=== PATIENT | male | born 1985 | race Two or more races ===

== ENCOUNTER 2022-07-07 18:57 | Emergency (ER) | payer MEDICAID ==
[2022-07-07 19:56] LABS: ESTIMATED GFR 88 mL/min (>60)
[2022-07-07] MEDS ORDERED: Tamsulosin 0.4 MG Cap.ER PO ONE (21:37)
== END 2022-07-07 21:56 | disposition home or self-care (01) ==
LOC: FB.ED 18:57
DX: N13.2 Hydronephrosis with renal and ureteral calculous obstruction (principal)
CPT/HCPCS: 36415; 51701; 74176; 80053; 81001; 85025; 86140; 87086; 99284; A9270

== ENCOUNTER 2024-10-06 13:31 | Emergency (ER) | payer MEDICAID ==
[2024-10-06] MEDS: Sodium Chloride 0.9% 10 ML Syringe FLUSH PRN (14:20)
[2024-10-06] MEDS: Sodium Chloride 0.9% 1,000 ML IV ONE (14:28)
[2024-10-06 14:35] LABS: BASOPHILS PERCENT AUTO 0.6 % (0.3-3.8); EOSINOPHILS PERCENT AUTO 0.2 % (0.1-6.8); HEMATOCRIT 42.9 % (38.3-50.1); HEMOGLOBIN 14.4 g/dL (12.9-17.7); MEAN CORPUSCULAR HEMOGLOBIN 30.4 pg (27.0-33.3); MEAN CORPUSCULAR HGB CONC 33.6 g/dL (28.7-35.3); MEAN CORPUSCULAR VOLUME 90.5 fL (80.8-98.7); MONOCYTES ABSOLUTE AUTO 0.7 x10-3/uL (0.0-1.2); MONOCYTES PERCENT AUTO 8.9 % (5.5-15.2); NEUTROPHILS ABSOLUTE AUTO 6.1 x10-3/uL (1.7-6.9); NEUTROPHILS PERCENT AUTO 77.3 % (40.3-71.8); PLATELET COUNT,PLT 315 x10(3)uL (117-477); RED BLOOD CELL COUNT 4.74 x10(6)uL (3.90-5.90); RED CELL DISTRIBUTION WIDTH 13.2 % (12.4-15.0); WHITE BLOOD CELL COUNT,WBC 7.9 x10-3/uL (3.2-10.1)
[2024-10-06 14:40] LABS: BLOOD UREA NITROGEN,BUN 21 mg/dL (7-18); CARBON DIOXIDE,CO2 23 mmol/L (21-32); CHLORIDE,CL 105 mmol/L (100-110); CREATININE 0.7 mg/dL (0.70-1.30); ESTIMATED GFR 119 mL/min (>60); GLUCOSE RANDOM 96 mg/dL (80-116); POTASSIUM,K 4.1 mmol/L (3.5-5.3); SODIUM,NA 139 mmol/L (135-145)
[2024-10-06 14:45] LABS: ALANINE AMINOTRANSFERASE,ALT 59 U/L (12-36); ALKALINE PHOSPHATASE 163 IU/L (56-112); ASPARTATE AMNIOTRANSFERASE,AST 33 IU/L (5-25); BILIRUBIN TOTAL 0.5 mg/dL (0.1-1.3); PROTEIN TOTAL,TP 8.2 g/dL (6.0-8.0)
== END 2024-10-06 15:55 | disposition home or self-care (01) ==
LOC: FB.ED 13:31
DX: K52.9 Noninfective gastroenteritis and colitis, unspecified (principal)
CPT/HCPCS: 36415; 80053; 83735; 85025; 96360; 99284-25; J7030